=== PATIENT | male | born 2000 | race Caucasian/White ===

== ENCOUNTER 2019-08-13 10:11 | Emergency (ER) | payer BC, SELFPAY ==
[2019-08-13 10:22] VITALS: BP 138/73; PULSE 73; RESP 15; TEMP 37.7; O2SAT 98
--- NOTE | 2019-08-13 10:29 | DI.RAD_ITS ---
EXAM: XR ANKLE RT COMPLETE INDICATION: Inverted ankle while playing basketball, ro fx. COMPARISON: No exams were available for comparison TECHNIQUE: 2D digital imaging was performed. FINDINGS: No acute fracture or dislocation is identified. There are well corticated osseous densities at the i nferior aspect of the medial malleolus. These are likely chronic. There is soft tissue swelling abo ut the ankle particularly laterally. No radiopaque foreign bodies are seen in the soft tissues. IMPRESSION: 1. No acute fracture or dislocation. 2. Soft tissue swelling about the left ankle.
[2019-08-13] MEDS: Ibuprofen 400 MG TAB 600 MG PO (10:35)
--- NOTE | 2019-08-13 10:37 | ED.GENADUL_ITS ---
Discharge Plan Disposition Patient Disposition: HOME Condition: Stable Discharge Details Chief Complaint: Orthopedic Clinical Impression: Right ankle sprain Primary Care Provider: Arslan Chanel ED Provider: Tru Moseley Home Meds and New Rx's Prescriptions: No Action No Known Home Meds RF: 0 Discharge Instructions Instructions: Ankle Sprain (ED) Additional Instructions: 1. Drink plenty of fluids. 2. Continue all medications as prescribed. 3. Acetaminophen 1000mg every 4 hours (up to 5 time a day) and/or ibuprofen 600mg every 6 hours as needed for fever or pain. 4. Rest, elevate, ice. Weightbearing and activity as tolerated. Return to the Emergency Department (ED) if your condition worsens, does not improve as expected, or for ANY other concerns. Specifically, return if you have new or uncontrolled pain, worsening fever, difficulty breathing, vomiting, or are unable to drink fluids. Medical Decision Making Presents with right ankle pain associate with an inversion injury while playing sykes ball yesterday evening. Exam is difficult bilateral soft tissue swelling anterior to the malleoli with no other significant clinical evidence of fracture/dislocation. X-ray negative. Treated in the ED with ice and ibuprofen. Reviewed x-ray findings and outpatient management of a soft tissue/ankle sprain. Given usual customary return instructions at discharge. Medical Records Medical records reviewed: Yes I reviewed the patient's medical records. HPI 18-year-old gentleman with an unremarkable past medical history. Presents for evaluation of right ankle pain associated with an inversion injury yesterday evening while playing basketball. He notes that he was able to walk off the bicycle court with moderate discomfort and is since been able to stand without significant pain. However, he has increased pain with walking/ankle flexion/extension. He has had bilateral swelling at his ankle but otherwise denies other ecchymosis, deformity, or significant injury. General Date/Time Provider Initiated Documentation: 08/13/19 10:29 . Related Data Home Medications Medication Instructions Recorded Confirmed Unknown [No Known Home Meds] 08/13/19 08/13/19 Allergies Allergy/AdvReac Type Severity Reaction Status Date / Time No Known Allergies Allergy Unverified 08/13/19 10:22 General Stated Complaint: Orthopedic JR: 4 Review of Systems All systems reviewed & are unremarkable except as noted in HPI and below PFSH Social History Smoking/Tobacco Use Status: Never Alcohol Intake: current Alcohol Intake frequency: a few times a week Drug use: Occasionally Substance use type: marijuana Do you feel safe at home: Yes Do you feel safe in your relationship?: Yes Exam Narrative Exam Narrative: Nursing note and vital signs have been reviewed and noted. GENERAL: alert, active, no acute distress, well -hydrated, well-nourished HEENT: atraumatic/normocephalic, PERRLA, EOMI, conjunctiva clear, external ears/canals normal, nasal mucosa normal NECK: supple, full range of motion CARDIOVASCULAR: nl pulses, no edema PULMONARY: nl effort, no audible wheezing or stridor ABDOMEN: non-distended EXTREMITY: normal muscle tone, right ankle with bilateral soft tissue swelling anteriorly there is no proximal fibula tenderness, Achilles tenderness, posterior lateral malleoli tenderness, or fifth metatarsal tenderness. Mild posterior medial malleoli tenderness and tenderness anteriorly. Full range of motion distally. Normal peripheral neurovascular exam. NUERO: normal mentation, moving all extremities, normal stance and gait, PSYCH: alert and oriented SKIN: no new rashes or lesions Course Vital Signs Vital signs: Vital Signs Temperature 99.9 F H 08/13/19 10:22 Pulse 73 08/13/19 10:22 Respiratory Rate 15 08/13/19 10:22 Blood Pressure 138/73 08/13/19 10:22 Pulse Oximetry 98 08/13/19 10:22 Temperature 99.9 F H 08/13/19 10:22 Temperature Source Temporal Artery Scan 08/13/19 10:22 Pulse 73 08/13/19 10:22 Respiratory Rate 15 08/13/19 10:22 Respiratory Effort Non-Labored 08/13/19 10:25 Blood Pressure 138/73 08/13/19 10:22 Blood Pressure Position Sitting 08/13/19 10:22 Pulse Oximetry 98 08/13/19 10:22 Oxygen Delivery Method Room Air 08/13/19 10:22 Oxygen Flow Rate 0 08/13/19 10:22 Pain Level 2 08/13/19 10:26
== END 2019-08-13 11:43 | disposition home or self-care (01) ==
PROVIDERS: Emergency Provider Emergency Medicine; PCP Pediatrics
DX: S93.401A Sprain of unspecified ligament of right ankle, initial encounter (principal); X50.1XXA Overexertion from prolonged static or awkward postures, initial encounter
CPT/HCPCS: 99283; 73610; 99282